=== PATIENT | male | born 1950 | race African-American/Black ===

== ENCOUNTER 2021-03-12 10:15 | Inpatient (IN) ==
[2021-03-12] MEDS ORDERED: ONDANSETRON 4 MG/2 ML VIAL IV STA (10:58)
[2021-03-12] MEDS ORDERED: SODIUM CHLORIDE 0.9% 1,000 ML IV STA (10:58)
[2021-03-12] MEDS ORDERED: PANTOPRAZOLE 40 MG VIAL IV STA (10:58)
[2021-03-12 11:20] LABS: Basophils % 0.4 % (0.0-0.8); Eosinophils % 0.2 % (0.00-10.9); Hematocrit 23.2 VOL% (42.0-52.0); Hemoglobin 7.7 GM/DL (14.0-18.0); Immature Granulocytes % 0.4 %; Immature Granulocytes Absolute 0.02 #; Lymphocytes # 0.6 10*3/uL (1.4-4.0); Lymphocytes % 11.7 % (21.2-54.2); Mean Corpuscular HGB Conc 33.2 GM/DL (32-36); Mean Corpuscular Volume 99.1 FL (87-102); Mean Platelet Volume 8.3 FL (9.6-12.0); Monocytes % 5.5 % (1.7-12.7); Neutrophils % 81.8 % (38.7-73.9); Platelet Count 429 T/CUMM (130-400); Red Blood Count 2.34 MC/CUMM (3.8-5.5); Red Cell Distribution Width 19.8 % (9.3-17.3); White Blood Count 4.9 T/CUMM (4-12)
[2021-03-12 11:29] LABS: INR 1.2; PT Patient Result 13.3 SECS (10.5-12.0); Partial Thromboplastin Time 27.1 SECS (23.8-32.1)
[2021-03-12 11:49] LABS: Albumin 2.5 G/DL (3.4-5.0); Calcium 8.9 MG/DL (8.5-10.1); Osmolality,Calculated 268.4 MOS/KG (273-304); Potassium 3.5 MMOL/L (3.5-5.1)
[2021-03-12 12:00] LABS: Bilirubin,Total 17.4 MG/DL (0.20-1.00)
[2021-03-12] MEDS ORDERED: GLUCAGON 1 MG VIAL IM PRN (14:00)
[2021-03-12] MEDS ORDERED: hydrALAZINE 20 MG/1 ML VIAL IV PRN (14:00)
[2021-03-12] MEDS ORDERED: DEXTROSE 50% 25 GM/50 ML SYRINGE IV PRN (14:08)
[2021-03-12] MEDS: LACTATED RINGERS 1,000 ML IV SCH (15:28)
[2021-03-12 20:09] LABS: Hematocrit 24.4 VOL% (42.0-52.0)
[2021-03-12] MEDS: PANTOPRAZOLE 40 MG VIAL IV SCH (21:44)
[2021-03-12 22:33] LABS: Hemoglobin 7.5 GM/DL (14.0-18.0)
[2021-03-13] MEDS: LACTATED RINGERS 1,000 ML IV SCH ×2 (06:25→12:46)
[2021-03-13 07:21] LABS: Basophils % 0.4 % (0.0-0.8); Eosinophils % 0.4 % (0.00-10.9); Hematocrit 22.9 VOL% (42.0-52.0); Hemoglobin 7.5 GM/DL (14.0-18.0); Immature Granulocytes % 0.6 %; Immature Granulocytes Absolute 0.03 #; Lymphocytes # 0.9 10*3/uL (1.4-4.0); Lymphocytes % 16.9 % (21.2-54.2); Mean Corpuscular HGB Conc 32.8 GM/DL (32-36); Mean Corpuscular Volume 99.1 FL (87-102); Mean Platelet Volume 8.7 FL (9.6-12.0); Monocytes % 6.2 % (1.7-12.7); Neutrophils % 75.5 % (38.7-73.9); Platelet Count 427 T/CUMM (130-400); Red Blood Count 2.31 MC/CUMM (3.8-5.5); Red Cell Distribution Width 19.4 % (9.3-17.3)
[2021-03-13 07:34] LABS: INR 1.2
[2021-03-13 07:51] LABS: % Iron Saturation 32.3 % (18-50); Ferritin 787.4 ng/mL (26-388)
[2021-03-13] MEDS ORDERED: INDOMETHACIN SUPP 50 MG SUPP RECTAL ONE (08:00)
[2021-03-13 08:03] LABS: Albumin 2.3 G/DL (3.4-5.0); Calcium 9.1 MG/DL (8.5-10.1); Osmolality,Calculated 258.8 MOS/KG (273-304); Potassium 3.2 MMOL/L (3.5-5.1); Total Protein 6.2 G/DL (6.4-8.2)
[2021-03-13 08:09] LABS: Bilirubin,Total 15.8 MG/DL (0.20-1.00)
[2021-03-13] MEDS: PANTOPRAZOLE 40 MG VIAL IV SCH ×2 (09:48→21:13)
[2021-03-13] MEDS: SODIUM CHLOR 0.9% KCL 20 MEQ 20 MEQ/1,000 ML BAG IV SCH (09:50)
[2021-03-13] MEDS: MORPHINE 2 MG/1 ML SYRINGE IV PRN (11:25)
[2021-03-13] MEDS ORDERED: ALBUMIN 5% 12.5 GM/250 ML VIAL IV ONE (13:01)
[2021-03-13] MEDS ORDERED: propofoL 200 MG/20 ML VIAL IV ONE (13:33)
[2021-03-13] MEDS ORDERED: SUCCINYLCHOLINE 200 MG/10 ML VIAL ONE (13:33)
[2021-03-13] MEDS ORDERED: PHENYLEPHRINE 1 MG/10 ML SYRINGE IV ONE ×2 (13:33→14:09)
[2021-03-13] MEDS ORDERED: ROCURONIUM 50 MG/5 ML VIAL IV ONE (13:33)
[2021-03-13] MEDS ORDERED: SEVOFLURANE 1 UNIT/15 MINUTE INH ONE (13:33)
[2021-03-13] MEDS ORDERED: ETOMIDATE 20 MG/10 ML VIAL IV ONE (13:33)
[2021-03-13] MEDS ORDERED: LIDOCAINE 2% 5 ML VIAL ONE (13:33)
[2021-03-13] MEDS ORDERED: GLYCOPYRROLATE 0.4 MG/2 ML VIAL ONE (13:53)
[2021-03-14 06:33] LABS: Basophils % 0.5 % (0.0-0.8); Eosinophils % 0.5 % (0.00-10.9); Hematocrit 21.2 VOL% (42.0-52.0); Immature Granulocytes % 0.5 %; Immature Granulocytes Absolute 0.02 #; Lymphocytes # 0.7 10*3/uL (1.4-4.0); Lymphocytes % 14.9 % (21.2-54.2); Mean Corpuscular Volume 99.5 FL (87-102); Mean Platelet Volume 8.3 FL (9.6-12.0); Monocytes % 5.3 % (1.7-12.7); NRBC # 0.02 10*3/uL; Neutrophils % 78.3 % (38.7-73.9); Platelet Count 391 T/CUMM (130-400); Red Blood Count 2.13 MC/CUMM (3.8-5.5); Red Cell Distribution Width 18.8 % (9.3-17.3); White Blood Count 4.4 T/CUMM (4-12)
[2021-03-14 07:11] LABS: Albumin 2.4 G/DL (3.4-5.0); Calcium 8.6 MG/DL (8.5-10.1); Osmolality,Calculated 264.5 MOS/KG (273-304); Potassium 3.4 MMOL/L (3.5-5.1)
[2021-03-14 07:18] LABS: Bilirubin,Total 14.3 MG/DL (0.20-1.00)
[2021-03-14] MEDS: PANTOPRAZOLE 40 MG VIAL IV SCH ×2 (08:55→23:04)
[2021-03-14] MEDS: MORPHINE 2 MG/1 ML SYRINGE IV PRN (08:55)
[2021-03-14] MEDS: SODIUM CHLOR 0.9% KCL 20 MEQ 20 MEQ/1,000 ML BAG IV SCH ×2 (09:02→18:09)
[2021-03-14] MEDS ORDERED: SODIUM CHLORIDE 0.9% 1,000 ML IV PRN (09:58)
[2021-03-14] MEDS ORDERED: POTASSIUM CHLORIDE 20 MEQ TABLET PO ONE (09:59)
[2021-03-14 11:20] LABS: Folate 10.34 NG/ML (5.38-24.0)
[2021-03-14] MEDS: LACTATED RINGERS 1,000 ML IV SCH (15:43)
[2021-03-14] MEDS: ONDANSETRON 4 MG/2 ML VIAL IV PRN (17:24)
[2021-03-14 23:25] LABS: Hematocrit 27.9 VOL% (42.0-52.0)
[2021-03-14 23:27] LABS: Hemoglobin 9.2 GM/DL (14.0-18.0)
[2021-03-15 04:52] LABS: Hemoglobin 9.9 GM/DL (14.0-18.0); Immature Granulocytes % 0.3 %; Immature Granulocytes Absolute 0.02 #; Lymphocytes # 0.5 10*3/uL (1.4-4.0); Lymphocytes % 8.5 % (21.2-54.2); Mean Corpuscular Volume 90.1 FL (87-102); Mean Platelet Volume 8.2 FL (9.6-12.0); Monocytes % 2.9 % (1.7-12.7); Neutrophils % 88.3 % (38.7-73.9); Platelet Count 359 T/CUMM (130-400); Red Blood Count 3.33 MC/CUMM (3.8-5.5); Red Cell Distribution Width 23.4 % (9.3-17.3); White Blood Count 5.9 T/CUMM (4-12)
[2021-03-15 05:12] LABS: Band Neutrophils 1 % (0-10); Hypochromasia 1+; Lymphocytes 7 % (20-55); Microcytosis 1+; Platelet Estimate Adequate; Segmented Neutrophils 89 % (50-85); Total Cells Counted 100
[2021-03-15 05:24] LABS: Albumin 2.4 G/DL (3.4-5.0); Calcium 8.6 MG/DL (8.5-10.1); Osmolality,Calculated 264.5 MOS/KG (273-304); Potassium 3.4 MMOL/L (3.5-5.1); Total Protein 6.4 G/DL (6.4-8.2)
[2021-03-15 05:27] LABS: Bilirubin,Total 12.9 MG/DL (0.20-1.00)
[2021-03-15] MEDS: PANTOPRAZOLE 40 MG VIAL IV SCH ×2 (08:16→20:48)
[2021-03-15] MEDS: MORPHINE 2 MG/1 ML SYRINGE IV PRN ×2 (08:17→12:08)
[2021-03-15] MEDS: POTASSIUM CHLORIDE 20 MEQ TABLET PO SCH ×2 (11:31→20:47)
[2021-03-15] MEDS ORDERED: POLYETHYLENE GLYCOL POWDER 255 GM BOTTLE PO ONE (16:00)
[2021-03-15] MEDS: ONDANSETRON 4 MG/2 ML VIAL IV PRN (20:56)
[2021-03-15] MEDS: SODIUM CHLOR 0.9% KCL 20 MEQ 20 MEQ/1,000 ML BAG IV SCH (21:55)
[2021-03-16] MEDS: SODIUM CHLOR 0.9% KCL 20 MEQ 20 MEQ/1,000 ML BAG IV SCH (04:13)
[2021-03-16] MEDS ORDERED: POLYETHYLENE GLYCOL POWDER 255 GM BOTTLE PO ONE ×2 (05:00→18:00)
[2021-03-16 06:05] LABS: Eosinophils # 0.1 10*3/uL (0.0-0.87); Hematocrit 27.9 VOL% (42.0-52.0); Hemoglobin 9.1 GM/DL (14.0-18.0); Immature Granulocytes % 1.4 %; Immature Granulocytes Absolute 0.07 #; Lymphocytes # 0.6 10*3/uL (1.4-4.0); Lymphocytes % 12.8 % (21.2-54.2); Mean Corpuscular HGB Conc 32.6 GM/DL (32-36); Mean Corpuscular Volume 92.1 FL (87-102); Mean Platelet Volume 8.1 FL (9.6-12.0); Monocytes % 5.2 % (1.7-12.7); Neutrophils % 79.6 % (38.7-73.9); Platelet Count 351 T/CUMM (130-400); Red Blood Count 3.03 MC/CUMM (3.8-5.5); Red Cell Distribution Width 24.4 % (9.3-17.3)
[2021-03-16 06:41] LABS: Albumin 2.3 G/DL (3.4-5.0); Bilirubin,Total 9.8 MG/DL (0.20-1.00); Calcium 9.2 MG/DL (8.5-10.1); Osmolality,Calculated 260.7 MOS/KG (273-304); Potassium 3.8 MMOL/L (3.5-5.1); Total Protein 6.6 G/DL (6.4-8.2)
[2021-03-16] MEDS: POTASSIUM CHLORIDE 20 MEQ TABLET PO SCH ×2 (11:03→20:11)
[2021-03-16] MEDS: PANTOPRAZOLE 40 MG VIAL IV SCH ×2 (15:23→20:11)
[2021-03-16] MEDS: ONDANSETRON 4 MG/2 ML VIAL IV PRN (20:11)
[2021-03-17] MEDS: ONDANSETRON 4 MG/2 ML VIAL IV PRN ×2 (01:06→20:42)
[2021-03-17] MEDS: MORPHINE 2 MG/1 ML SYRINGE IV PRN ×2 (01:06→20:42)
[2021-03-17] MEDS: SODIUM CHLOR 0.9% KCL 20 MEQ 20 MEQ/1,000 ML BAG IV SCH (01:07)
[2021-03-17] MEDS ORDERED: POLYETHYLENE GLYCOL POWDER 255 GM BOTTLE PO ONE (06:00)
[2021-03-17] MEDS: POTASSIUM CHLORIDE 20 MEQ TABLET PO SCH ×2 (08:06→20:41)
[2021-03-17] MEDS: PANTOPRAZOLE 40 MG VIAL IV SCH ×2 (08:28→20:42)
[2021-03-17 09:24] LABS: Basophils % 0.2 % (0.0-0.8); Eosinophils % 0.7 % (0.00-10.9); Hematocrit 26.7 VOL% (42.0-52.0); Hemoglobin 8.7 GM/DL (14.0-18.0); Immature Granulocytes % 1.6 %; Immature Granulocytes Absolute 0.07 #; Lymphocytes # 0.6 10*3/uL (1.4-4.0); Lymphocytes % 13.4 % (21.2-54.2); Mean Corpuscular HGB Conc 32.6 GM/DL (32-36); Mean Corpuscular Volume 92.7 FL (87-102); Mean Platelet Volume 8.1 FL (9.6-12.0); Monocytes % 6.4 % (1.7-12.7); Neutrophils % 77.7 % (38.7-73.9); Platelet Count 350 T/CUMM (130-400); Red Blood Count 2.88 MC/CUMM (3.8-5.5); Red Cell Distribution Width 24.3 % (9.3-17.3); White Blood Count 4.4 T/CUMM (4-12)
[2021-03-17 09:52] LABS: Albumin 2.3 G/DL (3.4-5.0); Bilirubin,Total 7.9 MG/DL (0.20-1.00); Calcium 8.7 MG/DL (8.5-10.1); Osmolality,Calculated 261.5 MOS/KG (273-304); Potassium 3.8 MMOL/L (3.5-5.1); Total Protein 6.7 G/DL (6.4-8.2)
[2021-03-17] MEDS ORDERED: LACTATED RINGERS 1,000 ML IV SCH (13:30)
[2021-03-17] MEDS ORDERED: LIDOCAINE 2% 5 ML VIAL ONE (14:25)
[2021-03-17] MEDS ORDERED: propofoL 200 MG/20 ML VIAL IV ONE (14:25)
[2021-03-18] MEDS: SODIUM CHLOR 0.9% KCL 20 MEQ 20 MEQ/1,000 ML BAG IV SCH ×2 (01:44→21:44)
[2021-03-18] MEDS: MORPHINE 2 MG/1 ML SYRINGE IV PRN ×3 (01:44→17:21)
[2021-03-18 05:49] LABS: Basophils % 0.5 % (0.0-0.8); Eosinophils # 0.1 10*3/uL (0.0-0.87); Eosinophils % 1.2 % (0.00-10.9); Hematocrit 25.7 VOL% (42.0-52.0); Hemoglobin 8.6 GM/DL (14.0-18.0); Immature Granulocytes % 2.9 %; Immature Granulocytes Absolute 0.12 #; Lymphocytes # 0.7 10*3/uL (1.4-4.0); Lymphocytes % 17.6 % (21.2-54.2); Mean Corpuscular HGB Conc 33.5 GM/DL (32-36); Mean Corpuscular Volume 91.5 FL (87-102); Mean Platelet Volume 8.4 FL (9.6-12.0); Monocytes % 7.8 % (1.7-12.7); Platelet Count 343 T/CUMM (130-400); Red Blood Count 2.81 MC/CUMM (3.8-5.5); Red Cell Distribution Width 23.6 % (9.3-17.3); White Blood Count 4.1 T/CUMM (4-12)
[2021-03-18 06:27] LABS: Albumin 2.2 G/DL (3.4-5.0); Bilirubin,Total 6.7 MG/DL (0.20-1.00); Calcium 8.8 MG/DL (8.5-10.1); Osmolality,Calculated 258.8 MOS/KG (273-304); Total Protein 6.5 G/DL (6.4-8.2)
[2021-03-18 06:31] LABS: Eosinophils 1 % (0-10); Hypochromasia 1+; Lymphocytes 23 % (20-55); Metamyelocytes 1 %; Myelocytes 1 %; Segmented Neutrophils 66 % (50-85); Total Cells Counted 100
[2021-03-18 06:32] LABS: Microcytosis 1+; Ovalocytes Slight; Platelet Estimate Normal; Target Cells Slight
[2021-03-18] MEDS: POTASSIUM CHLORIDE 20 MEQ TABLET PO SCH ×2 (10:33→20:51)
[2021-03-18] MEDS: PANTOPRAZOLE 40 MG VIAL IV SCH ×2 (10:36→20:50)
[2021-03-19] MEDS: MORPHINE 2 MG/1 ML SYRINGE IV PRN ×3 (02:00→16:36)
[2021-03-19 06:45] LABS: Albumin 2.4 G/DL (3.4-5.0); Bilirubin,Total 6.1 MG/DL (0.20-1.00); Calcium 8.9 MG/DL (8.5-10.1); Osmolality,Calculated 258.7 MOS/KG (273-304); Potassium 4.5 MMOL/L (3.5-5.1); Total Protein 6.9 G/DL (6.4-8.2)
[2021-03-19] MEDS: POTASSIUM CHLORIDE 20 MEQ TABLET PO SCH ×2 (10:02→22:00)
[2021-03-19] MEDS: PANTOPRAZOLE 40 MG TABLET PO SCH ×2 (10:02→22:00)
[2021-03-19] MEDS: SODIUM CHLOR 0.9% KCL 20 MEQ 20 MEQ/1,000 ML BAG IV SCH (23:45)
[2021-03-20] MEDS: MORPHINE 2 MG/1 ML SYRINGE IV PRN ×4 (03:15→21:03)
[2021-03-20] MEDS: PANTOPRAZOLE 40 MG TABLET PO SCH ×2 (08:36→21:02)
[2021-03-20] MEDS: POTASSIUM CHLORIDE 20 MEQ TABLET PO SCH ×2 (08:36→21:02)
[2021-03-20] MEDS: ONDANSETRON 4 MG/2 ML VIAL IV PRN (21:03)
[2021-03-21] MEDS: SODIUM CHLOR 0.9% KCL 20 MEQ 20 MEQ/1,000 ML BAG IV SCH ×2 (04:33→22:16)
[2021-03-21] MEDS: MORPHINE 2 MG/1 ML SYRINGE IV PRN ×3 (05:24→22:06)
[2021-03-21] MEDS: POTASSIUM CHLORIDE 20 MEQ TABLET PO SCH ×2 (09:20→22:17)
[2021-03-21] MEDS: PANTOPRAZOLE 40 MG TABLET PO SCH ×2 (09:21→22:17)
[2021-03-21] MEDS: ONDANSETRON 4 MG/2 ML VIAL IV PRN (22:06)
[2021-03-22] MEDS: MORPHINE 2 MG/1 ML SYRINGE IV PRN ×3 (04:33→16:52)
[2021-03-22] MEDS: PANTOPRAZOLE 40 MG TABLET PO SCH ×2 (09:35→20:11)
[2021-03-22] MEDS: POTASSIUM CHLORIDE 20 MEQ TABLET PO SCH ×2 (09:35→20:11)
[2021-03-22] MEDS: SODIUM CHLOR 0.9% KCL 20 MEQ 20 MEQ/1,000 ML BAG IV SCH (16:55)
[2021-03-23 05:41] LABS: Basophils % 0.3 % (0.0-0.8); Eosinophils # 0.1 10*3/uL (0.0-0.87); Eosinophils % 1.5 % (0.00-10.9); Hematocrit 29.9 VOL% (42.0-52.0); Hemoglobin 9.6 GM/DL (14.0-18.0); Immature Granulocytes % 1.2 %; Immature Granulocytes Absolute 0.08 #; Lymphocytes % 15.2 % (21.2-54.2); Mean Corpuscular HGB Conc 32.1 GM/DL (32-36); Mean Corpuscular Volume 95.2 FL (87-102); Monocytes % 6.6 % (1.7-12.7); Neutrophils % 75.2 % (38.7-73.9); Platelet Count 391 T/CUMM (130-400); Red Blood Count 3.14 MC/CUMM (3.8-5.5); White Blood Count 6.6 T/CUMM (4-12)
[2021-03-23 06:06] LABS: Lymphocytes 14 % (20-55); Segmented Neutrophils 77 % (50-85); Total Cells Counted 100
[2021-03-23 06:07] LABS: Hypochromasia 1+; Microcytosis 1+; Platelet Estimate Adequate
[2021-03-23 06:11] LABS: Calcium 9.3 MG/DL (8.5-10.1); Osmolality,Calculated 259.7 MOS/KG (273-304); Potassium 4.9 MMOL/L (3.5-5.1)
[2021-03-23] MEDS: POTASSIUM CHLORIDE 20 MEQ TABLET PO SCH ×2 (08:52→21:47)
[2021-03-23] MEDS: PANTOPRAZOLE 40 MG TABLET PO SCH ×2 (08:52→21:47)
[2021-03-23] MEDS: MORPHINE 2 MG/1 ML SYRINGE IV PRN ×2 (11:46→23:42)
[2021-03-24] MEDS: MORPHINE 2 MG/1 ML SYRINGE IV PRN (07:43)
[2021-03-24 07:48] VITALS: BP 121/87
[2021-03-24] MEDS: POTASSIUM CHLORIDE 20 MEQ TABLET PO SCH (09:17)
[2021-03-24] MEDS: PANTOPRAZOLE 40 MG TABLET PO SCH (09:17)
== END 2021-03-24 11:17 | DRG 374 ==
LOC: N.ED 10:15 → SUATTDRO 14:00 → N.EDINP 14:00 → N.5E 18:59
PROVIDERS: ADMIT Internal Medicine; ATTEND Internal Medicine Geriatric Medicine
PROC: COLONBX (2021-03-17 12:35)